=== PATIENT | female | born 1980 | race Caucasian/White ===

== ENCOUNTER 2018-03-24 12:42 | Emergency (ER) | payer OTHER ==
[2018-03-24 12:56] VITALS: BP 120/81
--- NOTE | 2018-03-24 13:20 | ER Report ---
History and Physical Time Seen By MD: 12:55 Hx. of Stated Complaint: PT WAS OUT IN [place] RIDING, GOT BUCKED OFF HORSE. DOES NOT KNOW IF SHE LOST CONCISOUNESS. PT GOT BACK ON HORSE AND RODE FOR 20 MORE MINUTES. PT STARTED DRIVING INTO TOWN. PT IS COMPLAINING IF HEAD, RIGHT NECK, LEFT HIP, BLURRED VISION, AND AMNESIA. HPI/ROS CHIEF COMPLAINT: Fall from horse HISTORY OF PRESENT ILLNESS: Patient is an otherwise healthy 37 showed female who was riding a horse and horse was acting up she turned to the right and fell off the left side of the settle does not remember hitting her head but is amnestic of events after which she had confusion about the name of the worsening of her p ets she was having trouble remember where she was this is subsequently cleared had some mild bilateral blurry vision no neck pain or discomfort currently limited a little soreness on the left side I did not get stepped on by the horse Back on the horse afterwards wrote for about 2030 more minutes and subsequently got up to worsen again cervix. The symptoms came to the emergency room patient is no additional complaints REVIEW OF SYSTEMS: Respiratory: No cough, no dyspnea. Cardiovascular: No chest pain, no palpitations. Gastrointestinal: No vomiting, no abdominal pain. Musculoskeletal: No back pain. Remainder of the 14 system rev: Yes Allergies: Coded Allergies: Penicillins (Verified Allergy, Unknown, RASH , 03/24/18) amoxicillin (Verified Allergy, Unknown, RASH , 03/24/18) Home Meds No Active Prescriptions or Reported Meds Reviewed Nurses Notes: Yes Old Medical Records Reviewed: Yes Constitutional Vital Sign - Last 24 Hours 03/24/18 03/24/18 03/24/18 12:55 12:56 12:57 Temp 98.5 Pulse 83 92 Resp 18 B/P (MAP) 120/81 120/81 (94) Pulse Ox 99 95 O2 Delivery Room Air Physical Exam General Appearance: The patient is alert, has no immediate need for airway protection and no current signs of toxicity. [ ] Eyes: Pupils equal and round no injection. Respiratory: Chest is non tender, lungs are clear to auscultation. Cardiac: regular rate and rhythm [ ] Gastrointestinal: Abdomen is soft and non tender, no masses, bowel sounds normal. Musculoskeletal: Neck: Neck is supple and non tender. Extremities have full range of motion and are non tender. Skin: No rashes or lesions. Neurologic examination patient alert and oriented times for GCS of 15 DIFFERENTIAL DIAGNOSIS: After history and physical exam differential diagnosis was considered for [ concussion closed head injury] Medical Decision Making ED Course/Re-evaluation ED Course ED clinical course 37-year-old female involved Vorse is amnestic of events and has some retrograde amnesia CT scan shows no acute intracranial pathology as the diagnosis of grade 1 concussion advised no head trauma or risk of head trauma for at least to a symptom free and primary care follow-up Decision to Disposition Date: Mar 24, 2018 Decision to Disposition Time: 14:01 Depart Departure Latest Vital Signs Vital Signs Date Time Temp Pulse Resp B/P (MAP) Pulse Ox O2 Delivery O2 Flow Rate FiO2 03/24/18 12:57 92 95 03/24/18 12:56 120/81 (94) 03/24/18 12:55 98.5 18 Room Air Impression: Primary Impression: Concussion Condition: Improved Disposition: HOME OR SELF-CARE Referrals: ANNIE GUARDADO MD 5 Days New Scripts No Active Prescriptions or Reported Meds Patient Instructions: Concussion (DC) LYNDSEY FLORES MD Mar 24, 2018 13:20
--- NOTE | 2018-03-24 13:57 | RADIOLOGY IMAGING REPORT ---
FACILITY: [facility] - [place] PATIENT NAME: Selena William : 1980 MR: [id number] V: [id number] EXAM DATE: ORDERING PHYSICIAN: LYNDSEY FLORES TECHNOLOGIST: Location: [facility] [place] Patient: Selena William : 1980 Visit/Account:[id number] Date of Sevice: 03/24/2018 EXAMINATION: CT head without IV contrast HISTORY: Bucked off horse TECHNIQUE: Axial CT images of the head were obtained from the vertex to the skull base without IV c ontrast, with coronal and sagittal 2D reconstructed images. One of the following dose optimization techniques was utilized in the performance of this exam: Autom ated exposure control; adjustment of the mA and/or kV according to the patient's size; or use of an i terative reconstruction technique. Specific details can be referenced in the facility's radiology C T exam operational policy. COMPARISON: None. FINDINGS: The intracranial contents are unremarkable. No CT evidence of intracranial hemorrhage or mass effect . No midline shift or extra-axial fluid collections. Gonzalez-white differentiation is maintained. The calvarium is intact. The visualized paranasal sinuses and mastoid air cells are unopacified. IMPRESSION: Unremarkable noncontrast head CT. Report Dictated By: Edgard Guy MD at 03/24/2018 1:50 PM Report E-Signed By: Edgard Guy MD at 03/24/2018 1:52 PM WSN:[id number]
== END 2018-03-24 14:10 | disposition home or self-care (01) ==
LOC: ER 13:06
DX: S06.0X9A Concussion with loss of consciousness of unspecified duration, initial encounter (principal); V80.010A Animal-rider injured by fall from or being thrown from horse in noncollision accident, initial encounter
CPT/HCPCS: 70450; 99284

== ENCOUNTER → 2018-06-11 | Outpatient (CLI) | payer OTHER ==
--- NOTE | 2018-06-11 13:35 | RADIOLOGY IMAGING REPORT ---
FACILITY: [facility] PATIENT NAME: Selena William : 1980 MR: [id number] V: [id number] EXAM DATE: ORDERING PHYSICIAN: GERONIMO BONE TECHNOLOGIST: Location: [facility] - [place] Patient: Selena William : 1980 Visit/Account:[id number] Date of Sevice: 06/11/2018 PELVIC INDICATION: Pain, COMPARISON: None Available FINDINGS: Uterus measures 7.9 x 2.8 x 3.9 cm and is homogeneous in echotexture without focal mass. Double wall endometrial stripe measures 5.2 mm and is homogeneous in echotexture There is a trace amount of free fluid in the cul-de-sac. The bladder has a normal smooth walled appearance. There is a large post void residual of 388 mL. Pelvic vessels appear unremarkable on this examination. Right ovary measures 2.6 x 2.8 x 3.9 cm and shows normal blood flow and contains several small follic les. Left ovary measures 2.7 x 1.7 x 2.1 cm and shows normal blood flow and contains several small follicl es. IMPRESSION: 1. Large post void residual of 388 mL otherwise normal pelvic ultrasound Report Dictated By: Shahram Day at 06/11/2018 1:29 PM Report E-Signed By: Shahram Day at 06/11/2018 1:31 PM WSN:[id number]
--- NOTE | 2018-06-11 13:37 | RADIOLOGY IMAGING REPORT ---
FACILITY: [facility] PATIENT NAME: Selena William : 1980 MR: [id number] V: [id number] EXAM DATE: ORDERING PHYSICIAN: GERONIMO BONE TECHNOLOGIST: Location: [facility] Patient: Selena William : 1980 Visit/Account:[id number] Date of Sevice: 06/11/2018 KIDNEYS HISTORY: UTIs COMPARISON: None. FINDINGS: Kidneys: Right kidney- 10.0 x 4.0 x 5.5 cm with normal parenchymal thickness and echogenicity. No ultrasound evident renal mass lesion or stone. Left kidney- 11.4 x 5.2 x 5.4 cm with normal parenchymal thickness and echogenicity. No ultrasound e vident renal mass lesion or stone. Uniform and symmetric blood flow in each kidney by Doppler ultrasound. Hydronephrosis: None. Bladder: Morphologically unremarkable. Bilateral ureteric jets visualized. There is a large post vo id residual of 388 mL. Abdominal aorta and IVC: Patent by Doppler ultrasound. IMPRESSION: Large post void residual of 388 mL otherwise normal renal ultrasound Report Dictated By: Shahram Day at 06/11/2018 1:31 PM Report E-Signed By: Shahram Day at 06/11/2018 1:33 PM WSN:[email or web address]
== END ==
LOC: US 04:24
PROVIDERS: ATTEND Urology
DX: R33.9 Retention of urine, unspecified (principal)
CPT/HCPCS: 76705; 76856